=== PATIENT | male | born 1945 | race Caucasian/White ===

== ENCOUNTER 2023-08-15 20:03 | Inpatient (IN) | payer OTHER ==
[~2023-08-15] VITALS: Ht 185.4 cm; Wt 106.6 kg
[2023-08-15 20:06] VITALS: O2SAT 100
[2023-08-15 21:26] LABS: BASOPHILS % 0.2 % (0.0-2.0); EOSINOPHILS % 0.7 % (0.0-5.0); HEMATOCRIT. 42.9 % (42.0-52.0); HEMOGLOBIN. 14.6 g/dL (14.0-18.0); LYMPHOCYTES % 8.2 % (20.0-50.0); MEAN CORPUSCULAR HEMOGLOBIN 32.2 pg (28.0-32.0); MEAN CORPUSCULAR VOLUME 94.6 fL (80.0-94.0); MEAN PLATELET VOLUME 8.3 fl (7.4-10.4); NEUTROPHILS % 83.9 % (40.0-76.0); PLATELET 155 x1000/uL (130-400); RED BLOOD CELL COUNT 4.53 mill/uL (4.7-6.1); RED CELL DISTRIBUTION WIDTH 13.8 % (11.6-14.6); WHITE BLOOD COUNT 9.1 x1000/uL (4.5-11.0)
[2023-08-15] MEDS: SODIUM CHLORIDE 0.9% 1,000 ML IV ONE (21:30)
[2023-08-15 21:37] LABS: PARTIAL THROMBOPLASTIN TIME 30.7 sec (23.4-31.0); PROTHROMBIN TIME 11.1 sec (9.6-11.0)
[2023-08-15 21:38] LABS: CHLORIDE 110 mEq/L (98-107); SODIUM 141 mEq/L (136-145)
[2023-08-15 21:39] LABS: CARBON DIOXIDE 24 mEq/L (21-32)
[2023-08-15 21:40] LABS: CALCIUM 9.9 mg/dL (8.7-10.4)
[2023-08-15 21:44] LABS: CREATININE 1.5 mg/dL (0.6-1.3)
[2023-08-15 21:45] LABS: GLUCOSE 139 mg/dL (70-105); UREA NITROGEN BLOOD 24 mg/dL (9-23)
[2023-08-15 21:47] LABS: TROPONIN I HIGH SENSITIVITY 37 ng/L (3.0-53)
[2023-08-16 00:46] LABS: TROPONIN I HIGH SENSITIVITY 90 ng/L (3.0-53)
[2023-08-16] MEDS ORDERED: IPRATROPIUM/ALBUTEROL 0.5-3(2.5)MG/3ML NEB HHN PRN (05:00)
[2023-08-16] MEDS ORDERED: ACETAMINOPHEN 325MG TABLET PO PRN ×2 (05:00)
[2023-08-16] MEDS ORDERED: DEXTROSE 50% WATER 50ML SYRINGE IV PRN (05:00)
[2023-08-16] MEDS ORDERED: NITROGLYCERIN 0.4MG TABLET SL SL PRN (05:15)
[2023-08-16 05:40] LABS: TROPONIN I HIGH SENSITIVITY 162 ng/L (3.0-53)
[2023-08-16] MEDS: AMLODIPINE 5MG TABLET PO SCH (05:45)
[2023-08-16] MEDS: ASPIRIN 325MG EC TABLET PO NR (07:11)
[2023-08-16] MEDS: BLOOD SUGAR DIAGNOSTIC STRIP TEST SCH (07:11)
[2023-08-16] MEDS: INSULIN LISPRO 100 UNITS/ML SUBCUT SCH (07:15)
[2023-08-16] MEDS ORDERED: APIXABAN 2.5 MG TABLET PO SCH (09:00)
[2023-08-16 09:34] LABS: BASOPHILS % 0.2 % (0.0-2.0); EOSINOPHILS % 0.6 % (0.0-5.0); HEMATOCRIT. 46.2 % (42.0-52.0); HEMOGLOBIN. 15.6 g/dL (14.0-18.0); LYMPHOCYTES % 11.3 % (20.0-50.0); MEAN CORPUSCULAR HEMOGLOBIN 32.3 pg (28.0-32.0); MEAN CORPUSCULAR HGB CONC 33.6 g/dL (31.0-37.0); MEAN PLATELET VOLUME 8.1 fl (7.4-10.4); MONOCYTES % 7.2 % (2.0-8.0); NEUTROPHILS % 80.7 % (40.0-76.0); PLATELET 167 x1000/uL (130-400); RED BLOOD CELL COUNT 4.82 mill/uL (4.7-6.1); RED CELL DISTRIBUTION WIDTH 14.1 % (11.6-14.6)
[2023-08-16] MEDS: ATORVASTATIN CALCIUM 40MG TABLET PO SCH (09:35)
[2023-08-16 09:49] LABS: IRON 165 ug/dL (65-175)
[2023-08-16 09:50] LABS: CREATINE KINASE MB FRACTION 6.7 ng/mL (0.5-3.6); LDL CHOLESTEROL 85 mg/dL (5-100); TRIGLYCERIDE 72 mg/dL (0-150)
[2023-08-16 09:51] LABS: ALANINE AMINOTRANSFERASE 22 IU/L (10-49); ALBUMIN 4.7 g/dL (3.2-4.8); ASPARTATE AMINOTRANSFERASE 28 IU/L (<34); CREATINE KINASE 243 IU/L (46-171)
[2023-08-16 09:52] LABS: BILIRUBIN DIRECT 0.4 mg/dL (<=3.0); BILIRUBIN TOTAL 1.1 mg/dL (0.1-1.0); CHOLESTEROL 154 mg/dL (<200); HDL CHOLESTEROL 58 mg/dL (>55); PHOSPHORUS 2.8 mg/dL (2.5-4.9); PROTEIN TOTAL 7.5 g/dL (6.0-8.3); TOTAL IRON BINDING CAPACITY 155 ug/dl (250-425)
[2023-08-16 09:54] LABS: T4 FREE 1.27 ng/dL (0.89-1.76)
[2023-08-16 09:57] LABS: FOLIC ACID (FOLATE) SERUM > 20.00 ng/mL (>5.38)
[2023-08-16 09:58] LABS: VITAMIN B12 SERUM 541 pg/mL (211-911)
[2023-08-16] MEDS ORDERED: APIX5TAB PO (11:01)
[2023-08-16] MEDS ORDERED: FINA5TAB11 PO (11:01)
[2023-08-16] MEDS ORDERED: TAMS-11 PO (11:01)
[2023-08-16] MEDS ORDERED: ASPI-1160 PO (11:01)
[2023-08-16] MEDS ORDERED: AMLO5TAB88 PO (11:01)
[2023-08-16] MEDS ORDERED: LOSA50TA41 PO (11:01)
[2023-08-16] MEDS ORDERED: EZET-82 (11:01)
[2023-08-16] MEDS ORDERED: HYDR100T26 PO (11:01)
[2023-08-16] MEDS ORDERED: LEVO175T7 PO (11:01)
[2023-08-16 11:30] VITALS: BP 136/94; PULSE 64; RESP 18; TEMP 96.6
[2023-08-16 12:00] VITALS: BP 136/94; PULSE 64; RESP 18; TEMP 96.6
[2023-08-16 16:00] VITALS: BP 179/87; PULSE 54; RESP 19; TEMP 96.3
[2023-08-16 16:47] LABS: CREATINE KINASE MB FRACTION 7.8 ng/mL (0.5-3.6)
[2023-08-16] MEDS: LOSARTAN 50 MG TABLET PO SCH (18:28)
[2023-08-16] MEDS: TAMSULOSIN HCL 0.4MG SR CAPSULE PO SCH (18:29)
[2023-08-16] MEDS: HYDRALAZINE 20MG/ML VIAL IV PRN (19:23)
[2023-08-16 20:00] VITALS: BP 169/84; PULSE 55; RESP 18; TEMP 97.5
[2023-08-16] MEDS ORDERED: ATORVASTATIN CALCIUM 20MG TABLET PO SCH (21:00)
[2023-08-16] MEDS: ENOXAPARIN 120MG/0.8ML SYR SUBCUT SCH (22:04)
[2023-08-17] VITALS: BP_SYST 124; BP_SYST 154; BP_DIAS 61; BP_DIAS 62; PULSE 53; RESP 18; TEMP 97.8
[2023-08-17] MEDS ORDERED: MAGNESIUM/ALUMINUM HYDROXIDE/SIMETHICONE 30ML UDC PO PRN (00:15)
[2023-08-17] MEDS: MAGNESIUM/ALUMINUM HYDROXIDE/SIMETHICONE 30ML UDC PO PRN (00:24)
[2023-08-17] MEDS: PANTOPRAZOLE SODIUM 40 MG/VIAL IV NR (00:28)
[2023-08-17 03:30] LABS: TROPONIN I HIGH SENSITIVITY 112 ng/L (3.0-53)
[2023-08-17 04:00] VITALS: BP 135/50; PULSE 51; RESP 20; TEMP 97.3
[2023-08-17] MEDS: LEVOTHYROXINE SODIUM 175MCG TABLET PO SCH (06:45)
[2023-08-17] MEDS ORDERED: APIXABAN 2.5 MG TABLET PO SCH (09:00)
[2023-08-17] MEDS ORDERED: APIXABAN 5 MG TABLET PO SCH (09:00)
[2023-08-17 11:19] LABS: TROPONIN I HIGH SENSITIVITY 85 ng/L (3.0-53)
[2023-08-17 12:00] VITALS: BP 130/65; PULSE 58; RESP 20; TEMP 97.2
== END 2023-08-17 15:30 | disposition home or self-care (01) | DRG 73 ==
LOC: ER 20:03 → 5WST 08-16 02:19 → EDBEDREQ 08-16 02:28 → EDBEDREQTM 08-16 02:28 → 7EST 08-16 10:33
PROVIDERS: ADMIT Hospitalist; ATTEND Hospitalist
DX: G90.8 Other disorders of autonomic nervous system (principal); I21.A1 Myocardial infarction type 2; I50.43 Acute on chronic combined systolic (congestive) and diastolic (congestive) heart failure; N17.9 Acute kidney failure, unspecified; I13.0 Hypertensive heart and chronic kidney disease with heart failure and stage 1 through stage 4 chronic kidney disease, or unspecified chronic kidney disease; I45.2 Bifascicular block; D75.89 Other specified diseases of blood and blood-forming organs; N18.9 Chronic kidney disease, unspecified; I16.0 Hypertensive urgency; N40.0 Benign prostatic hyperplasia without lower urinary tract symptoms; I44.0 Atrioventricular block, first degree; E11.22 Type 2 diabetes mellitus with diabetic chronic kidney disease; I48.91 Unspecified atrial fibrillation; I25.10 Atherosclerotic heart disease of native coronary artery without angina pectoris; Z95.1 Presence of aortocoronary bypass graft; Z90.79 Acquired absence of other genital organ(s); Z85.850 Personal history of malignant neoplasm of thyroid
CPT/HCPCS: 36415; 71045; 80048; 80061; 80076; 82550; 82553; 82607; 82746; 82962; 83036; 83540; 83550; 83605; 83735; 83880; 84100; 84145; 84439; 84443; 84484; 85025; 93005; 93306; 93880; 93970; 99291; C1893; J0360; J1650; J2470; J7030